=== PATIENT | female | born 1965 | race Caucasian/White ===

== ENCOUNTER 2021-06-24 16:20 | Inpatient (IN) | payer BC ==
[~2021-06-24] VITALS: Ht 144.8 cm; Wt 95.4 kg
[2021-06-24 18:12] LABS: BASO % 0.2 % (0.0-2.0); GRAN % 72.1 % (42.2-75.2); HEMATOCRIT 44.6 % (37.0-47.0); HEMOGLOBIN 14.5 g/dl (12.5-16.0); LYMPH # 0.8 K/mm3 (1.2-3.4); LYMPH % 19.5 % (20.0-51.0); MEAN CELL VOLUME 91 fl (80.0-100.0); MEAN CORPUSCULAR HEMOGLOBIN 30 pg (27.0-31.0); MEAN CORPUSCULAR HGB CONC 33 g/dl (33.0-37.0); MEAN PLATELET VOLUME 10.9 fl (7.4-10.4); MONO # 0.3 K/mm3 (0.1-0.6); MONO % 7.7 % (1.7-9.3); PLATELET COUNT 174 K/mm3 (130-400); RED BLOOD COUNT 4.91 M/mm3 (4.10-5.30); REDCELL DISTRIBUTION WIDTH-CV 13.2 % (11.5-14.5)
[2021-06-24 18:23] LABS: ALBUMIN 3.3 gm/dL (3.5-5.0); BILIRUBIN,TOTAL 0.6 mg/dL (0.2-1.2); CALCIUM 8.4 mg/dL (8.4-10.2); CREATININE, serum 0.74 mg/dL (0.57-1.11); POTASSIUM 3.8 mmol/L (3.5-4.5); TOTAL PROTEIN 7.6 gm/dL (6.2-8.1)
[2021-06-24] MEDS ORDERED: PRIL40 PO (19:50)
[2021-06-24] MEDS ORDERED: AZO-STANDARD95 MG PO (19:51)
[2021-06-24] MEDS ORDERED: MOTRIN 200200 MG/TAB PO (19:51)
--- NOTE | 2021-06-24 20:30 | NUR ---
Patient arrived to medical unit from ER at approximately 1945. Alert and oriented x 4, and able to make needs known. Peripheral INT to left forearm. Denies pain and discomfort. Does have shortness of breath with exertion. Given fan as requested, as well as water, crackers, and jello. Patient on oxygen at 4 L/min via NC. LS CTA in upper lobes, diminished in lower. Has productive cough with thick yellow sputum. HRR. Capillary refill less than 3 seconds. Non-tenting skin turgor. BSAx4. Abdomen soft and non-tender. No edema. Voices no questions, needs, or concerns at this time. Oriented to room. In bed with call light within reach.
[2021-06-24 20:48] VITALS: BP 112/67; PULSE 105; TEMP 98.2
[2021-06-25 00:27] VITALS: BP 123/71; PULSE 91; TEMP 98.2
[2021-06-25 04:20] VITALS: BP 123/73; PULSE 92; TEMP 98.3
--- NOTE | 2021-06-25 05:54 | NUR ---
Patient has been in bed with call light within reach. On oxygen at 4 L/min via NC. Continues to have cough. Voices no questions, needs, or concerns at this time
[2021-06-25 08:30] VITALS: BP 126/75; PULSE 98; TEMP 98.4
--- NOTE | 2021-06-25 09:00 | NUR ---
PT ALERT AND ORIENTED. PT INDEPENDENT IN ROOM. PT LUNGS CLEAR IN UPPER LOBES AND DIMINISHED IN BASES BILATERALLY. PT HAS S1,S2 SOUNDS AUSCULTATED. PT PULSES 2+ IN ALL EXTREMITIES, MILD EDEMA NOTED IN LEGS. NON-PITTING. PT HAS COUGH, PRODUCTIVE, UNABLE TO ASSESS SPUTUM. PT HAS ACTIVE BOWEL SOUNDS, [id number]. PT IV INFILTRATED. SEVERAL ATTEMPTS TO RESTART, CALLED CHARGE NURSE AND MAGAZINE WRITER. RESTARTED IN RIGHT HAND. PT ABLE TO CALL FOR NEEDS.
[2021-06-25 10:01] LABS: HEMATOCRIT 43.8 % (37.0-47.0); HEMOGLOBIN 14.2 g/dl (12.5-16.0); MEAN CELL VOLUME 93 fl (80.0-100.0); MEAN CORPUSCULAR HEMOGLOBIN 30 pg (27.0-31.0); MEAN CORPUSCULAR HGB CONC 32 g/dl (33.0-37.0); MEAN PLATELET VOLUME 11.1 fl (7.4-10.4); PLATELET COUNT 180 K/mm3 (130-400); RED BLOOD COUNT 4.72 M/mm3 (4.10-5.30); REDCELL DISTRIBUTION WIDTH-CV 13.2 % (11.5-14.5)
[2021-06-25 10:27] LABS: CREATININE, serum 0.69 mg/dL (0.57-1.11); POTASSIUM 3.7 mmol/L (3.5-4.5)
[2021-06-25 11:41] VITALS: BP 124/76; PULSE 99; TEMP 98.4
--- NOTE | 2021-06-25 13:18 | NUR ---
NOTIFIED DR. DAS OF PT IV SITE DISFUNCTIONAL, MULTIPLE ATTEMPTS AT RESTART THIS AM. REQUEST FOR CENTRAL LINE PLACEMENT. RECEIVED VERBAL ORDERS FOR CENTRAL LINE.
--- NOTE | 2021-06-25 14:28 | NUR ---
NOTIFIED RESPIRATORY THERAPY OF INCREASED OXYGEN NEEDS.
[2021-06-25 15:22] LABS: BAND 1 % (0-10); LYMPHOCYTE 10 % (20.0-51.0); NEUTROPHILS 85 % (42.0-75.2)
[2021-06-25 15:23] LABS: HYPOCHROMIA 1+; PLATELET ESTIMATE NORMAL (NORMAL)
[2021-06-25 17:18] VITALS: BP 127/67; PULSE 88; TEMP 98.1
--- NOTE | 2021-06-25 19:11 | NUR ---
PT CONTINUING ON PLAN OF CARE. CENTRAL LINE PLACED FOR IV MANAGEMENT. PT HAD DIFFICULTY WITH IV STICKS THIS AM. PT OXYGEN NEEDS AT 5L PER NASAL CANNULA. RESPIRATORY THERAPY MADE AWARE THIS SHIFT. PT CONTINUING TREATMENT FOR COVID VIA IV AND PO MEDICATIONS PER ORDERS. PT VITALS REMAINED STABLE THIS SHIFT NO SIGNIFICANT CHANGES NOTED. PT INDEPENDENT IN ROOM, ABLE TO CALL FOR NEEDS.
[2021-06-25 20:45] VITALS: BP 125/72; PULSE 89; TEMP 98.1
[2021-06-26 00:35] VITALS: BP 101/77; PULSE 86; TEMP 97.7
[2021-06-26 04:30] VITALS: BP 118/70; PULSE 83; TEMP 97.7
--- NOTE | 2021-06-26 06:52 | NUR ---
pt remains on 5L O2 perNC , prod cough, robitussin given @[facility], pt reported helped her sleep better tonight. triple lumen central line patent/secure in left chest,
[2021-06-26 06:58] LABS: HEMOGLOBIN 14.1 g/dl (12.5-16.0); MEAN CELL VOLUME 91 fl (80.0-100.0); MEAN CORPUSCULAR HEMOGLOBIN 29 pg (27.0-31.0); MEAN CORPUSCULAR HGB CONC 32 g/dl (33.0-37.0); MEAN PLATELET VOLUME 10.8 fl (7.4-10.4); PLATELET COUNT 220 K/mm3 (130-400); RED BLOOD COUNT 4.82 M/mm3 (4.10-5.30); REDCELL DISTRIBUTION WIDTH-CV 13.1 % (11.5-14.5)
[2021-06-26 07:24] LABS: C-REACTIVE PROTEIN 6.15 mg/dL (0.00-0.50); CALCIUM 8.5 mg/dL (8.4-10.2); CREATININE, serum 0.7 mg/dL (0.57-1.11); MAGNESIUM 2.5 mg/dL (1.6-2.6); PHOSPHOROUS 3.4 mg/dL (2.3-4.7); POTASSIUM 3.7 mmol/L (3.5-4.5)
[2021-06-26 08:14] VITALS: BP 119/74; PULSE 87; TEMP 98.2
[2021-06-26 08:48] LABS: BAND 8 % (0-10); LYMPHOCYTE 26 % (20.0-51.0); METAMYELOCYTE 1 % (0-0); NEUTROPHILS 58 % (42.0-75.2); PLATELET ESTIMATE NORMAL (NORMAL)
--- NOTE | 2021-06-26 10:46 | NUR ---
Patient does not have any complaints this morning and appears to be doing well. This RN offered the patient cough medicine for comfort and patient declined, as she feels it is better to cough the phlegm up. This RN aggreed and instructed the patient to call if the coughing becomes painful. Patient is independent in the room and has call light w/in reach.
--- NOTE | 2021-06-26 11:18 | NUR ---
The patient is COVID positive. SW contacted the patient to discuss discharge plan. The patient lives in [place] with her (Danie, ph#[phone]), son (Juan, ph#[phone]), and granddaughter. She reports independence with ADLs and does not have any DME. The patient's PCP is Dr. Regina Ferrer and she receives her medications from [facility] in [facility]. She reports no difficulties obtaining her meds. The patient does not have a DPOA-HC. She states that her PCP did give her the forms. The patient plans on returning home with her family upon discharge. She is currently requiring 5 liters of oxygen. SW to continue to monitor. *Discharge plan: home with family*
[2021-06-26 12:59] VITALS: BP 117/66; PULSE 88; TEMP 98
[2021-06-26 16:00] VITALS: BP 127/75; PULSE 81; TEMP 97.7
--- NOTE | 2021-06-26 18:27 | NUR ---
Patient has done well today. Has not had any complaints or concerns. Remains independent in the room and has call light w/in reach.
[2021-06-26 19:32] VITALS: BP 117/72; PULSE 81; TEMP 97.9
[2021-06-27 00:44] VITALS: BP 134/84; PULSE 86; TEMP 97.9
[2021-06-27 04:35] VITALS: BP 108/60; PULSE 86; TEMP 97.8
--- NOTE | 2021-06-27 06:22 | NUR ---
pt on 5L O2 per NC all shift, triple lumen central line to left upper chest patent/secure, am lab obtained from [facility]. pt states she slept well tonight, up ad sarmad in room.
[2021-06-27 06:45] LABS: HEMOGLOBIN 13.5 g/dl (12.5-16.0); MEAN CELL VOLUME 90 fl (80.0-100.0); MEAN CORPUSCULAR HEMOGLOBIN 30 pg (27.0-31.0); MEAN CORPUSCULAR HGB CONC 33 g/dl (33.0-37.0); MEAN PLATELET VOLUME 10.8 fl (7.4-10.4); PLATELET COUNT 217 K/mm3 (130-400); RED BLOOD COUNT 4.54 M/mm3 (4.10-5.30); REDCELL DISTRIBUTION WIDTH-CV 13.1 % (11.5-14.5)
[2021-06-27 07:02] LABS: ALBUMIN 2.8 gm/dL (3.5-5.0); C-REACTIVE PROTEIN 3.54 mg/dL (0.00-0.50); CALCIUM 8.3 mg/dL (8.4-10.2); CREATININE, serum 0.63 mg/dL (0.57-1.11); MAGNESIUM 2.3 mg/dL (1.6-2.6); PHOSPHOROUS 3.6 mg/dL (2.3-4.7); POTASSIUM 3.7 mmol/L (3.5-4.5)
[2021-06-27 07:37] LABS: BAND 2 % (0-10); LYMPHOCYTE 48 % (20.0-51.0); NEUTROPHILS 41 % (42.0-75.2); PLATELET ESTIMATE NORMAL (NORMAL)
[2021-06-27 08:07] VITALS: BP 102/67; PULSE 88; TEMP 97.7
--- NOTE | 2021-06-27 08:59 | NUR ---
Assessment completed, alert/oriented, vital signs stable, denies any pain or discomfort and is in NO acute distress, she reports overall feeling much improved, she is currently on 4L.o2 via NC and is toelarting well and maintaining saturations above 90%, lungs are CTA with good air exchange bilaterally, she reports productve cough with pale green sputum/ I did not observe any myself, heart RRR/distal pulses are palpable, she is sitting up in the recliner, morning meds given, she is now eating breakfst and denies other needs at this time, will continue to monitor
[2021-06-27 12:17] VITALS: BP 122/73; PULSE 84; TEMP 97.9
--- NOTE | 2021-06-27 13:45 | NUR ---
RT notified me that the patient will need to be discharged with 4L of oxygen. Spoke with patient who reports that she would like her oxygen established through [facility]. Patient is unsure at this point if it would be her or her son Juan picking her up. Message left for Juan to call me so i could provide instructions for oxygen seed cone picker. Oxygen orders faxed to [facility]
[2021-06-27 16:00] VITALS: BP 138/81; PULSE 80; TEMP 97.6
[2021-06-27] MEDS ORDERED: DECADRON6 MG PO (17:44)
[2021-06-27] MEDS ORDERED: DOXYCYCLINE 10100 MG PO (17:44)
[2021-06-27] MEDS ORDERED: OMNICEF 300MG300 MG PO (17:45)
--- NOTE | 2021-06-27 18:23 | NUR ---
Patient discharging home, d/c instructions reviewed with her, instructed to follow up with PCP and Pulm in 1 week/ she will need to call and schedule those appointments, instructed to take meds as prescribed, scripts for Decadron/doxy/cefdenir sent to pharmacy for her, Central line was remove around 1630 and hemestasis acheived, no signs of bleeding or oozing at time of discharge, instructed to monitor for signs of bleeing and infection and to keep site clean and dry for 24 hours, O2 was set up by social work and family picked it up and has it ready for when she discharges, education provided on meds and COVID 19, patient verbalized understanding of teaching, denied needs or questions, I escorted the patient out by wheelchair
== END 2021-06-27 18:36 | disposition home or self-care (01) | DRG 177 ==
LOC: COL.ER 16:20 → MEDICAL 18:38
PROVIDERS: Internal Medicine; Student in an Organized Health Care Education/Training Program; ADMIT Internal Medicine
PROC: XW033E5 Introduction of Remdesivir Anti-infective into Peripheral Vein, Percutaneous Approach, New Technology Group 5 (ICD-10-PCS; 2021-06-24)
PROC: 06HY33Z Insertion of Infusion Device into Lower Vein, Percutaneous Approach (ICD-10-PCS; principal; 2021-06-25)
DX: U07.1 COVID-19 (principal); J96.01 Acute respiratory failure with hypoxia; Z68.41 Body mass index [BMI] 40.0-44.9, adult; K21.9 Gastro-esophageal reflux disease without esophagitis; R32 Unspecified urinary incontinence; E66.9 Obesity, unspecified; Z87.891 Personal history of nicotine dependence
CPT/HCPCS: 99223-AI; 99233-AI; 99239; C1751; J0696; J1100; J1650; J7050; J8540

== ENCOUNTER → 2021-07-25 | Outpatient (CLI) | payer BC ==
[~2021-07-25] MED LIST: AZO-STANDARD95 MG PO; DECADRON6 MG PO; DOXYCYCLINE 10100 MG PO; MOTRIN 200200 MG/TAB PO; OMNICEF 300MG300 MG PO; PRIL40 PO
== END ==
LOC: COL.PUL 07-18 08:00
DX: R06.02 Shortness of breath (principal); Z87.891 Personal history of nicotine dependence

== ENCOUNTER → 2024-05-13 | Outpatient (CLI) | payer OTHER ==
[~2024-05-13] VITALS: Ht 149.9 cm; Wt 97.0 kg
[~2024-05-13] MED LIST changes: +ALLEGRA-D 24HR1 T24 PO; +BREO IH; +Regadenoson 0.08 MG/ML 5 ML SYRINGE IV SCH; +TYLENOL 8 HR PO
[2024-05-13 09:11] VITALS: BP 153/83; PULSE 85; TEMP 97.8
[2024-05-13 10:07] VITALS: BP 142/74; PULSE 79
[2024-05-13 10:09] VITALS: BP 158/76; PULSE 107
[2024-05-13 10:10] VITALS: BP 159/80; PULSE 110
[2024-05-13 10:11] VITALS: BP 150/86; PULSE 106
== END ==
LOC: COL.RAD 08:48
DX: R07.89 Other chest pain (principal); F17.211 Nicotine dependence, cigarettes, in remission
CPT/HCPCS: A9500-JZ; J2785